=== PATIENT | female | born 1975 | race Caucasian/White ===

== ENCOUNTER 2022-11-03 09:10 | Day surgery (SDC) | payer BC, OTHER, SELFPAY ==
--- NOTE | 2022-11-03 09:30 | US_ITS ---
[address] [address] Patient Name: MELIZA VILLALOBOS MRN: [id number] date: 1975 Sex: F Assigned Patient Location: US Current Patient Location: US Accession/Order Number: [id number] Exam Date: 11/03/2022 09:30 Report Date: 11/05/2022 09:43 At the request of: VÍCTOR MIRANDA Procedure: US breast vac bx w/ clip RT EXAM: US breast vac bx w/ clip RT HISTORY: RT BREAST BIOPSY FOR MASS COMPARISON: Ultrasound breast right Limited 10/26/2022 TECHNIQUE: After obtaining informed consent, ultrasound-guided biopsy was performed in the usual sterile manner. The location of the biopsy was then marked as indicated below. FINDINGS: Specimen #, Location: 3 core samples; right breast 4:00 hypoechoic subtle mass. Biopsy Needle: 13 gauge vacuum core biopsy needle. Marker(s): A single metallic marker was placed in the appropriate targeted location. Medication: Buffered 1% Lidocaine with epinephrine administered locally. Complications: None. Pathology: Pending. IMPRESSION: 1. Uneventful ultrasound-guided breast biopsy. 2. Pathology results are pending. An addendum to this report will be provided after pathology results are available. Electronically authenticated by: MIYA BAKER Date: 11/05/2022 09:43
--- NOTE | 2022-11-03 09:33 | MM_ITS ---
Patient: MELIZA VILLALOBOS Exam Date: 11/03/2022 : 1975 Gender:F Ordering : DR Justice Hidalgo . Admission #: [id number] Family : DR JEFFREY LAZCANO M.D. Order #: [id number] CLICK HERE TO VIEW EXAM RADIOLOGY REPORT PROCEDURE: MM POST BIOPSY RT COMPARISON: US BREAST RIGHT LIMITED, 10/26/2022. US BREAST VAC BX W/ CLIP RT, 11/03/2022. INDICATIONS: POST BIOPSY BREAST COMPOSITION: FINDINGS: BIOPSY MARKER: A metallic marker has been placed in the targeted location within the lower-inner quadrant of the right breast. BREAST FINDINGS: Expected post biopsy findings. RECOMMENDATIONS: Dictated by: Gilberto Wagner M.D. on 11/03/2022 at 10:58 Approved by: Gilberto Wagner M.D. on 11/03/2022 at 10:59
[2022-11-03] MEDS: LIDOCAINE HCL/EPINEPHRINE 10 ML, SODIUM BICARBONATE 1 MEQ INJ (10:07)
[2022-11-03] MEDS: LIDOCAINE HCL 10 ML, SODIUM BICARBONATE 1 MEQ INJ (10:07)
[2022-11-03 11:09] VITALS: BP 107/69; PULSE 72; O2SAT 100
--- NOTE | 2022-11-03 11:28 | PC.NURSE ---
Time out completed at [address] Wagner, Luna Goss, Moon Guidry present
== END 2022-11-03 10:45 ==
LOC: US 09:15
PROVIDERS: Radiology Diagnostic Radiology; PCP Family Medicine; Visit Provider Obstetrics & Gynecology
DX: C50.311 Malignant neoplasm of lower-inner quadrant of right female breast (principal)
CPT/HCPCS: 19083; 77065; 88305; 88360

== ENCOUNTER 2024-04-01 21:44 | Outpatient (REF) | payer BC, OTHER, SELFPAY | END 2024-04-01 21:45 | disposition home or self-care (01) | LOC: LAB 21:44 | PROVIDERS: PCP Family Medicine; Visit Provider Physician Assistant | DX: Z01.419 Encounter for gynecological examination (general) (routine) without abnormal findings (principal) | CPT/HCPCS: 87624; 88175 ==